=== PATIENT | female | born 1980 | race Caucasian/White ===

== ENCOUNTER 2020-05-21 10:13 | Emergency (ER) | payer MEDICAID ==
[~2020-05-21] VITALS: Ht 160 cm; Wt 68.2 kg
[2020-05-21 10:16] VITALS: Ht 160 cm; Wt 68.2 kg
[2020-05-21 11:11] LABS: UDS - AMPHET NEGATIVE QUAL (NEGATIVE); UDS - BARB NEGATIVE QUAL (NEGATIVE); UDS - BENZO POSITIVE QUAL (NEGATIVE); UDS - COCAINE NEGATIVE QUAL (NEGATIVE); UDS - OPIATE NEGATIVE QUAL (NEGATIVE); UDS - PCP NEGATIVE QUAL (NEGATIVE); UDS - THC NEGATIVE QUAL (NEGATIVE)
--- NOTE | 2020-05-21 11:17 | NUR ---
DR. AREVALO NOTIFIED OF ASSESSMENT AND PTS BEHAVIOR. REVIEWED PER DR. AREVALO. PT IS LOW RISK AT THIS TIME. ATTENDING AND CHARGE NURSE NOTIFIED OF RESULT FINDINGS. DR. AREVALO STATED TO GIVE RESOURCES AT THIS TIME. RESOURCES PROVIDED AND SHE VERBALIZED UNDERSTANDING. PT DENIES SI AT THIS TIME. PT REPORTS " I ATTEMPTED TO OVERDOSE X 3 SEVERAL MONTHS AGO." PT REPORTS " I ATTEND SMALL GROUP AND HAD SOME MED CHANGES RECENTLY." PT CONTINUES TO DENY SI AT THIS TIME.
[2020-05-21 11:32] LABS: LITHIUM 0.63 mmol/L (0.60-1.20); SALICYLATES 4.3 mg/dL (2.8-20.0)
[2020-05-21 11:33] LABS: HEMATOCRIT 39.5 % (36.0-48.0); HEMOGLOBIN 12.2 g/dL (12-16); LYMPHOCYTES 30.3 % (15-50); MCH 26.2 pg (26.0-34.0); MCHC 30.9 g/dL (31.0-37.0); MCV 84.8 fL (80.0-100.0); MEAN PLATELET VOLUME 9.4 fL (7.4-10.4); NEUTROPHILS 62.9 % (40-80); PLATELET COUNT 259 10x3/uL (130-400); RBC 4.66 10x6/uL (4.00-5.40); RDW 13.7 % (11.5-14.5); WBC 4.8 10x3/uL (4.8-10.8)
[2020-05-21 11:34] LABS: CALC OSMOLALITY 275 mosm/kg (275-300); CALCIUM 9.7 mg/dL (8.5-10.1); CARBON DIOXIDE 27.5 mmol/L (21.0-32.0); CHLORIDE - SERUM 103 mmol/L (98-107); CREATININE - SERUM 0.8 mg/dL (0.6-1.3); GLUCOSE 90 mg/dL (74-106); POTASSIUM - SERUM 4.1 mmol/L (3.5-5.1); SODIUM 140 mmol/L (136-145); UREA NITROGEN 5 mg/dL (7-18); eGFR NON AFRICAN AMERICAN 85 mL/min (90-120)
[2020-05-21 11:35] LABS: BILIRUBIN NEGATIVE (NEGATIVE); GLUCOSE NEGATIVE (NEGATIVE); KETONE NEGATIVE (NEGATIVE); NITRITE NEGATIVE (NEGATIVE); WHITE CELLS - URINE 0-5 /hpf (NEGATIVE)
[2020-05-21 11:36] LABS: BACTERIA MODERATE /hpf (NEGATIVE); EPITHELIAL CELLS 0-5 /hpf (0-5); RED CELLS - URINE OCC /hpf (0-5)
[2020-05-21 11:47] LABS: ALBUMIN 4.2 g/dL (3.4-5.0); ALKALINE PHOSPHATASE 69 U/L (30-120); ALT (SGPT) 18 U/L (10-68); BILIRUBIN - TOTAL 0.21 mg/dL (0.2-1.3); MAGNESIUM - SERUM 2.1 mg/dL (1.8-2.4); PROTEIN - SERUM 7.6 g/dL (6.4-8.2)
[2020-05-21 11:50] LABS: CARBAMAZEPINE (TEGRETOL) 18.6 ug/mL (4.0-12.0)
[2020-05-21] MEDS ORDERED: PROTONIX20 MG PO (12:26)
[2020-05-21] MEDS ORDERED: PHENERGAN25 M1 PO (12:26)
[2020-05-21] MEDS ORDERED: ROPINIROLE HCL1 MG PO (12:27)
[2020-05-21] MEDS ORDERED: FLUVOXAMINE MA100 M1 PO (12:27)
[2020-05-21] MEDS ORDERED: TRAZODONE HCL150 MG PO (12:28)
[2020-05-21] MEDS ORDERED: LITHIUM CARBON300 MG PO (12:28)
[2020-05-21] MEDS ORDERED: TEGRETOL200 MG PO (12:29)
[2020-05-21] MEDS ORDERED: VALIUM5 MG PO (12:29)
[2020-05-21] MEDS ORDERED: MACROBID100 MG PO (12:55)
[2020-05-21 14:39] VITALS: BP 102/69
== END 2020-05-21 14:39 | disposition home or self-care (01) ==
LOC: D.ER 10:13
PROVIDERS: Family Medicine
DX: R79.89 Other specified abnormal findings of blood chemistry (principal); N39.0 Urinary tract infection, site not specified; R53.1 Weakness; R41.0 Disorientation, unspecified

== ENCOUNTER 2020-08-13 11:49 | Emergency (ER) | payer MEDICAID ==
[~2020-08-13] VITALS: Ht 160 cm; Wt 67.3 kg
[~2020-08-13 11:49] MED LIST: FLUVOXAMINE MA100 M1 PO; LITHIUM CARBON300 MG PO; MACROBID100 MG PO; PHENERGAN25 M1 PO; PROTONIX20 MG PO; ROPINIROLE HCL1 MG PO; TEGRETOL200 MG PO; TRAZODONE HCL150 MG PO; VALIUM5 MG PO
[2020-08-13 12:01] VITALS: Ht 160 cm; Wt 67.3 kg
[2020-08-13 13:26] LABS: UDS - AMPHET NEGATIVE QUAL (NEGATIVE); UDS - BARB NEGATIVE QUAL (NEGATIVE); UDS - BENZO POSITIVE QUAL (NEGATIVE); UDS - COCAINE NEGATIVE QUAL (NEGATIVE); UDS - OPIATE NEGATIVE QUAL (NEGATIVE); UDS - PCP NEGATIVE QUAL (NEGATIVE); UDS - THC NEGATIVE QUAL (NEGATIVE)
[2020-08-13 13:29] LABS: CALC OSMOLALITY 268 mosm/kg (275-300); CALCIUM 9.2 mg/dL (8.5-10.1); CHLORIDE - SERUM 107 mmol/L (98-107); CREATININE - SERUM 0.7 mg/dL (0.6-1.3); GLUCOSE 90 mg/dL (74-106); POTASSIUM - SERUM 3.8 mmol/L (3.5-5.1); SODIUM 136 mmol/L (136-145); UREA NITROGEN 3 mg/dL (7-18); eGFR NON AFRICAN AMERICAN > 90 mL/min (90-120)
[2020-08-13 13:32] LABS: ALBUMIN 3.9 g/dL (3.4-5.0); ALKALINE PHOSPHATASE 56 U/L (30-120); ALT (SGPT) 14 U/L (10-68); BILIRUBIN - TOTAL 0.21 mg/dL (0.2-1.3); PROTEIN - SERUM 6.8 g/dL (6.4-8.2)
[2020-08-13 13:56] LABS: KETONE NEGATIVE (NEGATIVE); NITRITE NEGATIVE (NEGATIVE); UROBILINOGEN NORMAL mg/dL (< 2)
[2020-08-13 13:57] LABS: BILIRUBIN NEGATIVE (NEGATIVE)
[2020-08-13 13:58] LABS: BACTERIA MODERATE /HPF (NONE SEEN); WHITE CELLS - URINE 0-5 HPF (0-4)
[2020-08-13 14:34] LABS: BASOPHILS 0.2 % (0-2); EOSINOPHILS 3.9 % (0-7); HEMATOCRIT 38.1 % (36.0-48.0); HEMOGLOBIN 11.7 g/dL (12-16); IMMATURE GRANULOCYTES 0.2 % (0-5); MCH 27.5 pg (26.0-34.0); MCHC 30.7 g/dL (31.0-37.0); MCV 89.4 fL (80.0-100.0); MONOCYTES 6.2 % (2-11); NEUTROPHILS 54.5 % (40-80); PLATELET COUNT 267 10x3/uL (130-400); RBC 4.26 10x6/uL (4.00-5.40); RDW 15.2 % (11.5-14.5); WBC 6.5 10x3/uL (4.8-10.8)
[2020-08-13 20:17] VITALS: BP 132/89
== END 2020-08-13 20:17 ==
LOC: D.ER 11:49
PROVIDERS: Family Medicine
DX: F31.9 Bipolar disorder, unspecified (principal); R45.850 Homicidal ideations; Z91.14 Patient's other noncompliance with medication regimen

== ENCOUNTER → 2021-02-27 | Emergency (ER) | payer MEDICAID ==
[~2021-02-27] VITALS: Ht 160 cm; Wt 79.5 kg
[~2021-02-27] MED LIST changes: +BUSPAR 15 MG TA15 MG PO; +KLONOPIN1 MG PO; +KRILL OIL 1,001 EAC1 PO; +SEROQUEL400 MG PO; +TRILEPTAL600 MG PO
[2021-02-27 10:40] VITALS: Ht 160 cm; Wt 79.5 kg
[2021-02-27 11:08] LABS: CALC OSMOLALITY 273 mosm/kg (275-300); CALCIUM 9.2 mg/dL (8.5-10.1); CARBON DIOXIDE 27.8 mmol/L (21.0-32.0); CHLORIDE - SERUM 103 mmol/L (98-107); CREATININE - SERUM 0.8 mg/dL (0.6-1.3); GLUCOSE 109 mg/dL (74-106); SODIUM 137 mmol/L (136-145); UREA NITROGEN 11 mg/dL (7-18); eGFR NON AFRICAN AMERICAN 85 mL/min (90-120)
[2021-02-27 11:10] LABS: HCG URINE NEGATIVE (NEGATIVE)
[2021-02-27 11:15] LABS: ALBUMIN 3.7 g/dL (3.4-5.0); ALKALINE PHOSPHATASE 81 U/L (30-120); ALT (SGPT) 40 U/L (10-68); BILIRUBIN - TOTAL 0.21 mg/dL (0.2-1.3); PROTEIN - SERUM 7.3 g/dL (6.4-8.2)
[2021-02-27 11:21] LABS: UDS - AMPHET NEGATIVE QUAL (NEGATIVE); UDS - BARB NEGATIVE QUAL (NEGATIVE); UDS - BENZO NEGATIVE QUAL (NEGATIVE); UDS - COCAINE NEGATIVE QUAL (NEGATIVE); UDS - OPIATE NEGATIVE QUAL (NEGATIVE); UDS - PCP NEGATIVE QUAL (NEGATIVE); UDS - THC NEGATIVE QUAL (NEGATIVE)
--- NOTE | 2021-02-27 11:36 | NUR ---
DR. AREVALO NOTIFIED AND SITTER ORDERED. SITTER AT BEDSIDE. NOTIFIED CHARGE NURSE AND ATTENDING IN REGARDS TO ASSESSMENT FINDINGS. RESOURCES GIVEN TO PT AND SAFETY PLAN INITIATED.
[2021-02-27 11:40] LABS: BACTERIA FEW HPF (NONE SEEN); BILIRUBIN NEGATIVE (NEGATIVE); KETONE NEGATIVE (NEGATIVE); NITRITE NEGATIVE (NEGATIVE); SQUAMOUS EPITHELIAL OCC HPF (0-4); UROBILINOGEN NORMAL mg/dL (< 2); WHITE CELLS - URINE OCC HPF (0-4)
[2021-02-27 12:29] LABS: BASOPHILS 0.3 % (0-2); EOSINOPHILS 1.5 % (0-7); HEMATOCRIT 34.3 % (36.0-48.0); HEMOGLOBIN 10.9 g/dL (12-16); IMMATURE GRANULOCYTES 0.8 % (0-5); LYMPHOCYTE ABS# 2.43 10x3/uL (1.18-3.74); LYMPHOCYTES 36.7 % (15-50); MCH 27.3 pg (26.0-34.0); MCHC 31.8 g/dL (31.0-37.0); MEAN PLATELET VOLUME 8.9 fL (7.4-10.4); MONOCYTES 8.3 % (2-11); NEUTROPHIL ABS# 3.47 10x3/uL (1.56-6.13); NEUTROPHILS 52.4 % (40-80); PLATELET COUNT 344 10x3/uL (130-400); RBC 3.99 10x6/uL (4.00-5.40); RDW 15.9 % (11.5-14.5); WBC 6.6 10x3/uL (4.8-10.8)
[2021-02-27 15:18] VITALS: BP 139/89
== END | disposition home or self-care (01) ==
LOC: D.ER 10:35
PROVIDERS: Family Medicine
DX: R45.851 Suicidal ideations (principal); R44.0 Auditory hallucinations; F32.9 Major depressive disorder, single episode, unspecified

== ENCOUNTER 2021-04-23 22:18 | Emergency (ER) | payer MEDICAID ==
[~2021-04-23] VITALS: Ht 160 cm; Wt 80.9 kg
[2021-04-23 22:31] VITALS: Ht 160 cm; Wt 80.9 kg
--- NOTE | 2021-04-23 22:52 | NUR ---
DR AREVALO NOTIFIED AND SITTER ORDERED, SITTER AT BEDSIDE. NOTIFIED CHARGE NURSE AND ATTENDING IN REGARDS TO ASSESSMENT FINDINGS. RESOURCES GIVEN TO PT AND SAFETY PLAN INITIATED.
[2021-04-23 23:15] LABS: BILIRUBIN NEGATIVE (NEGATIVE); HCG URINE NEGATIVE (NEGATIVE); KETONE NEGATIVE (NEGATIVE); NITRITE NEGATIVE (NEGATIVE); UROBILINOGEN NORMAL mg/dL (< 2)
[2021-04-23 23:17] LABS: BACTERIA MODERATE HPF (NONE SEEN); SQUAMOUS EPITHELIAL 0-5 HPF (0-4); WHITE CELLS - URINE 0-5 HPF (0-4)
[2021-04-23 23:19] LABS: UDS - AMPHET NEGATIVE QUAL (NEGATIVE); UDS - BARB NEGATIVE QUAL (NEGATIVE); UDS - BENZO NEGATIVE QUAL (NEGATIVE); UDS - COCAINE NEGATIVE QUAL (NEGATIVE); UDS - OPIATE NEGATIVE QUAL (NEGATIVE); UDS - PCP NEGATIVE QUAL (NEGATIVE); UDS - THC NEGATIVE QUAL (NEGATIVE)
[2021-04-23 23:30] LABS: BASOPHILS 0.4 % (0-2); EOSINOPHILS 2.8 % (0-7); HEMATOCRIT 34.4 % (36.0-48.0); HEMOGLOBIN 11.2 g/dL (12-16); LYMPHOCYTES 41.5 % (15-50); MCHC 32.5 g/dL (31.0-37.0); MCV 76.8 fL (80.0-100.0); MEAN PLATELET VOLUME 7.8 fL (7.4-10.4); NEUTROPHILS 48.3 % (40-80); PLATELET COUNT 367 10x3/uL (130-400); RBC 4.47 10x6/uL (4.00-5.40); RDW 16.7 % (11.5-14.5); WBC 6.7 10x3/uL (4.8-10.8)
[2021-04-23 23:43] LABS: ANION GAP 16.8 mmol/L (8-16); CALCIUM 9.2 mg/dL (8.5-10.1); CARBON DIOXIDE 22.8 mmol/L (21.0-32.0); POTASSIUM - SERUM 3.6 mmol/L (3.5-5.1)
[2021-04-23 23:50] LABS: ALBUMIN 3.6 g/dL (3.4-5.0); BILIRUBIN - TOTAL 0.16 mg/dL (0.2-1.3); MAGNESIUM - SERUM 1.9 mg/dL (1.8-2.4); PROTEIN - SERUM 7.3 g/dL (6.4-8.2)
[2021-04-24 05:54] VITALS: BP 100/59
== END 2021-04-24 06:57 ==
LOC: D.ER 22:18
PROVIDERS: Family Medicine
DX: F32.9 Major depressive disorder, single episode, unspecified (principal); Z86.59 Personal history of other mental and behavioral disorders; T54.3X1A Toxic effect of corrosive alkalis and alkali-like substances, accidental (unintentional), initial encounter; R45.851 Suicidal ideations

== ENCOUNTER 2021-05-07 18:32 | Emergency (ER) | payer MEDICAID ==
[~2021-05-07] VITALS: Ht 160 cm; Wt 77.3 kg
[2021-05-07 18:35] VITALS: Ht 160 cm; Wt 77.3 kg
[2021-05-07 19:07] LABS: BILIRUBIN NEGATIVE (NEGATIVE); KETONE NEGATIVE (NEGATIVE); NITRITE NEGATIVE (NEGATIVE); UROBILINOGEN NORMAL mg/dL (< 2)
[2021-05-07 19:08] LABS: BACTERIA MODERATE HPF (NONE SEEN); SQUAMOUS EPITHELIAL 0-5 HPF (0-4); WHITE CELLS - URINE 0-5 HPF (0-4)
[2021-05-07 19:09] LABS: HCG URINE NEGATIVE (NEGATIVE)
[2021-05-07 19:12] LABS: UDS - AMPHET NEGATIVE QUAL (NEGATIVE); UDS - BARB NEGATIVE QUAL (NEGATIVE); UDS - BENZO NEGATIVE QUAL (NEGATIVE); UDS - COCAINE NEGATIVE QUAL (NEGATIVE); UDS - OPIATE NEGATIVE QUAL (NEGATIVE); UDS - PCP NEGATIVE QUAL (NEGATIVE); UDS - THC NEGATIVE QUAL (NEGATIVE)
[2021-05-07 19:13] LABS: BASOPHILS 0.8 % (0-2); EOSINOPHILS 1.9 % (0-7); HEMATOCRIT 32.5 % (36.0-48.0); HEMOGLOBIN 10.4 g/dL (12-16); LYMPHOCYTES 35.4 % (15-50); MCH 25.1 pg (26.0-34.0); MCV 78.5 fL (80.0-100.0); MEAN PLATELET VOLUME 7.7 fL (7.4-10.4); MONOCYTES 7.1 % (2-11); NEUTROPHILS 54.8 % (40-80); PLATELET COUNT 322 10x3/uL (130-400); RBC 4.14 10x6/uL (4.00-5.40); RDW 16.9 % (11.5-14.5); WBC 6.3 10x3/uL (4.8-10.8)
[2021-05-07 19:22] LABS: CALC OSMOLALITY 277 mosm/kg (275-300); CALCIUM 8.3 mg/dL (8.5-10.1); CARBON DIOXIDE 25.5 mmol/L (21.0-32.0); CHLORIDE - SERUM 106 mmol/L (98-107); CREATININE - SERUM 0.6 mg/dL (0.6-1.3); GLUCOSE 97 mg/dL (74-106); POTASSIUM - SERUM 3.7 mmol/L (3.5-5.1); SODIUM 139 mmol/L (136-145); UREA NITROGEN 12 mg/dL (7-18); eGFR NON AFRICAN AMERICAN > 90 mL/min (90-120)
[2021-05-07 19:27] LABS: ACETAMINOPHEN 5.4 ug/mL (10.0-30.0); ALBUMIN 3.5 g/dL (3.4-5.0); ALKALINE PHOSPHATASE 61 U/L (30-120); ALT (SGPT) 23 U/L (10-68); BILIRUBIN - TOTAL 0.14 mg/dL (0.2-1.3); MAGNESIUM - SERUM 1.9 mg/dL (1.8-2.4); PROTEIN - SERUM 6.9 g/dL (6.4-8.2)
[2021-05-08 00:22] VITALS: BP 123/72
[2021-05-08 02:15] LABS: SARS-CoV-2 ANTIGEN NEGATIVE- SARS-COV-2 (NEGATIVE)
[2021-05-08] MEDS ORDERED: PATADAY2.5 ML EACH EYE (02:18)
[2021-05-08] MEDS ORDERED: PROTONIX40 MG PO (02:18)
[2021-05-08] MEDS ORDERED: LEXAPRO20 MG PO (02:18)
[2021-05-08] MEDS ORDERED: CHLORPROMAZINE200 MG PO (02:19)
--- NOTE | 2021-05-08 02:36 | NUR ---
DR AREVALO NOTIFIED AND SITTER ORDERED, SITTER AT BEDSIDE. NOTIFIED CHARGE NURSE AND ATTENDING IN REGARDS TO ASSESSMENT FINDINGS. RESOURCES GIVEN TO PT AND SAFETY PLAN INITIATED.
== END 2021-05-08 05:20 ==
LOC: D.ER 18:32
PROVIDERS: Family Medicine
DX: T54.92XA Toxic effect of unspecified corrosive substance, intentional self-harm, initial encounter (principal); R44.0 Auditory hallucinations; R45.851 Suicidal ideations